=== PATIENT | female | born 1985 | race Hispanic/Latino ===

== ENCOUNTER 2025-03-07 20:32 | Emergency (ER) | payer BC ==
[~2025-03-07] VITALS: Ht 149.9 cm; Wt 83.9 kg
[~2025-03-07 20:32] MED LIST: SALBUTAMOL IH
--- NOTE | 2025-03-07 20:46 | ERN ---
ED Note History of Present Illness Stated Complaint: C/O HEADACHE,DIZZINESS, WEAKNESS, SYNCOPY X 2 DAYS Chief Complaint: Headache Time Seen by MD: 20:38 Dictation: PATIENT IS A 39-YEAR-OLD FEMALE COMING IN WITH COMPLAINTS OF A GENERALIZED HEADACHE AND WEAKNESS FOR THE LAST TWO DAYS. ALSO TONIGHT SHE WAS GETTING DRESSED AFTER SHE GOT OUT OF THE SHOWER AND HER STATES SHE GOT WEAK AND HE HAD TO CATCH HER BEFORE SHE HIT THE GROUND. NO LOC NO NAUSEA VOMITING NO PERSONALITY CHANGES. NIH IS 0. SHE IS STATUS POST A TUMMY TUCK IN [facility] FIVE DAYS AGO. SHE DENIES FEVER CHILLS. Allergies: Coded Allergies: No Known Drug Allergies (Unverified Allergy, Unknown, 12/16/14) Home Meds Reported Medications [Salbutamol ] No Conflict Check, 2 PUFF IH HSPRN PRN for SHORTNESS OF BREATH/WHEEZING 06/22/16 Past Medical History Past Medical History: No Pertinent History Surgical History: Other Surgical History Other: TUMMY TUCK 5 DAYS AGO LMP: Mar 07, 2025 RN Note Reviewed/Agreed w/PFSH: Yes Review of System Dictation CONSTITUTIONAL: NEGATIVE EXCEPT FOR HPI NEAR-SYNCOPE HEAD/FACE: NEGATIVE EXCEPT FOR HPI EENT: NEGATIVE EXCEPT FOR HPI RESPIRATORY: NEGATIVE EXCEPT FOR HPI GASTROINTESTINAL/ABDOMINAL: NEGATIVE EXCEPT FOR HPI GENITOURINARY: NEGATIVE EXCEPT FOR HPI MUSCULOSKELETAL: NEGATIVE EXCEPT FOR HPI INTEGUMENTARY: NEGATIVE EXCEPT FOR HPI NEUROLOGICAL/PSYCH: NEGATIVE EXCEPT FOR HPI ICE HEADACHE HEMATOLOGIC/LYMPHATIC: NEGATIVE EXCEPT FOR HPI ALL SYSTEMS NEGATIVE, EXCEPT NOTED ABOVE. 13 POINT REVIEW OF SYSTEMS ASSESSED AND ALL NEGATIVE EXCEPT FOR ABOVE. Initial Vital Sign VS Vital Signs Date Time Temp Pulse Resp B/P (MAP) Pulse Ox O2 Delivery O2 Flow Rate FiO2 03/07/25 20:36 98.2 99 20 131/67 100 Room Air 03/08/25 01:57 0 21 Physical Exam Dictation VITAL SIGNS REVIEWED GENERAL APPEARANCE: ALERT, ORIENTED X 3, MILD ACUTE DISTRESS, WELL DEVELOPED, NOURISHED. HEAD AND FACE: NON-TRAUMATIC. EYES: PERRL, PINK CONJUNCTIVAS, EYELID NO TRAUMA, ANTERIOR CHAMBER WITH ARCUS S ENILIS. EARS: PINNAS INTACT AND NO SIGNS OF TRAUMA OR ERYTHEMA EAR CANALS CLEAR AND NO DISCHARGE TM NO ERYTHEMA NOSE: NO DISCHARGE, NO BLEEDING. OROPHARYNX: MOUTH NORMAL, TONGUE PINK, PHARYNX CLEAR,NO ERYTHEMA, TONSILS NO EXUDATES, NO ABSCESSES NOTED, MUCOUS MEMBRANE MOIST NECK: SUPPLE, NON-TENDER, NO THYROMEGALY, NO MASSES, NO JVD, NO BRUITS BREAST:DEFERRED CHEST:NO TENDERNESS, NO CREPITUS, NO PARADOXICAL MOVEMENT, NO RETRACTIONS LUNGS:CLEAR, WELL-VENTILATED, SYMMETRIC, NO RALES, NO WHEEZING, NO RHONCHI, NO STRIDOR, GOOD BREATH SOUNDS BILATERALLY HEART: REGULAR RATE, REGULAR RHYTHM, NO MURMUR, NO GALLOPS VASCULAR: NO PERIPHERAL EDEMA, ABDOMEN: SOFT, POSITIVE BOWEL SOUNDS, NONDISTENDED, NO GUARDING, NONTENDER, NO REBOUND, NO MASSES NO HEPATOMEGALY, NO SPLENOMEGALY, NO PISANO'S SIGN, NO HERNIAS. RECTAL: DEFERRED GENITAL: DEFERRED NEUROLOGICAL: NORMAL SPEECH, MOTOR FUNCTION INTACT, SENSORY FUNCTION INTACT MUSCULOSKELETAL: NECK NONTENDER, FULL RANGE OF MOTION, BACK NONTENDER, FULL RANGE OF MOTION, EXTREMITIES: NONTENDER, FULL RANGE OF MOTION SKIN: COLOR PINK, DRY, NO TURGOR, NO RASH, NO LACERATIONS, NO ABRASIONS, NO CONTUSIONS. LYMPHATIC: DEFERRED Results (Laboratory/Radiology) Laboratory/Radiology Laboratory Tests Test 03/07/25 21:52 03/08/25 05:41 White Blood Count 7.2 K/uL (4.8-10.8) Red Blood Count 2.50 MIL/uL (4.00-5.50) L Hemoglobin 7.0 g/dL (12.0-16.0) *L 8.5 g/dL (12.0-16.0) #L Hematocrit 22.5 % (36-48) L 26.3 % (36-48) L Mean Corpuscular Volume 90.0 fL (79-99) Mean Corpuscular Hemoglobin 28.0 pg (27.0-33.0) Mean Corpuscular Hemoglobin Concent 31.1 g/dL (32.0-36.0) L Red Cell Distribution Width 15.9 % (11.0-15.5) H Platelet Count 269 K/uL (130-400) Mean Platelet Volume 10.2 fL (7.5-10.5) Immature Granulocyte % (Auto) 1.7 % (0-1) H Neutrophils (%) (Auto) 77.6 % (40.0-77.0) H Lymphocytes (%) (Auto) 13.1 % (21.0-51.0) L Monocytes (%) (Auto) 5.7 % (3.0-13.0) Eosinophils (%) (Auto) 1.8 % (0.0-8.0) Basophils (%) (Auto) 0.1 % (0.0-5.0) Neutrophils # (Auto) 5.6 K/uL (1.8-7.7) Lymphocytes # (Auto) 0.9 K/uL (1.0-4.8) L Monocytes # (Auto) 0.4 K/uL (0.1-1.0) Eosinophils # (Auto) 0.13 K/uL (0.00-0.70) Basophils # (Auto) 0.01 K/uL (0.00-0.20) Absolute Immature Granulocyte (auto 0.12 K/uL (0-1) Nucleated Red Blood Cells 0.0 % (0.0-0.19) Sodium Level 138 mmol/L (136-145) Potassium Level 3.6 mmol/L (3.5-5.1) Chloride Level 102 mmol/L (101-111) Carbon Dioxide Level 28 mmol/L (21-32) Blood Urea Nitrogen 7 mg/dL (7-18) Creatinine 0.5 mg/dL (0.5-1.0) Glomerular Filtration Rate Calc 121 mL/min (>90) Random Glucose 122 mg/dL (70-105) H Total Calcium 8.0 mg/dL (8.5-10.1) L Troponin I High Sensitivity < 4 ng/L (4-50) L Serum Test, Qualitative NEGATIVE (NEGATIVE) Labs Reviewed?: Yes EKG: (+) NSR EKG Comment: NORMAL SINUS RHYTHM/HEART RATE 86/AXIS NORMAL/NO ECTOPY ED Course ED Course Orders Procedure Category Date Status Time Cbc With Differential LAB 03/07/25 Complete 20:43 Troponin I High LAB 03/07/25 Complete Sensitivity 20:43 12 Lead Ekg Tracing- EKG 03/07/25 Complete Technical 20:43 Basic Metabolic Panel LAB 03/07/25 Complete 20:43 Acetaminophen 500mg PHA 03/07/25 Complete Tab (Tylenol 500mg T 21:00 Chest 1vw RAD 03/07/25 Resulted 22:01 Testing, LAB 03/07/25 Complete Serum Hcg 22:01 0.9%Nacl 1000ml (Ns PHA 03/07/25 Complete 1000ml) 23:30 Rbc - Preoperative BBK 03/07/25 Complete Order 23:53 Type And Screen BBK 03/07/25 Complete 23:53 Hemoglobin And LAB 03/08/25 Complete Hematocrit 04:56 Current Medications Medications (Trade) Dose Ordered Sig/Donovan Route PRN Reason Start Time Stop Time Status Last Admin Dose Admin Acetaminophen (TYLenol 500MG TAB) 1,000 mg ONCE ONCE PO 03/07/25 21:00 03/07/25 21:01 DC 03/07/25 22:31 Sodium Chloride 1,000 ml @ 0 mls/hr ONCE ONCE IV 03/07/25 23:30 03/07/25 23:31 DC 03/07/25 23:28 Vital Signs Date Time Temp Pulse Resp B/P (MAP) Pulse Ox O2 Delivery O2 Flow Rate FiO2 03/08/25 01:57 98.8 83 17 116/56 99 Room Air* 0 21 03/07/25 20:36 98.2 99 20 131/67 100 Room Air Medical Decision Making MDM The patient is a 39-year-old female with a recent history of tummy tuck done in [place] about a week ago who presents to the emergency department with complaints of near-syncope, weakness and headache. Patient otherwise denies any fevers denies nausea or vomiting, denies bloody stools, denies any abdominal pain. CBC showed no leukocytosis, normocytic anemia, chemistry showed no electrolyte imbalance, negative troponin, negative . Chest x-ray was unremarkable. Given patient symptomatically we will transfused a unit of blood. Patient where she is on her menstrual cycle but denies any abnormal bleeding or heavy bleeding. Patient denies any bloody stools. Patient has and abdominal drained but serosanguineous with no severe bleeding. On physical exam patient is neurologically intact, ambulatory, abdomen is soft and nontender., stable vital signs Differential diagnosis: Dehydration, electrolyte imbalance, tachyarrhythmia Need for hospitalization: Patient does not meet criteria for hospitalization. There are no social concerns with this patient. Patient's laboratory analysis showed a hemoglobin of 7. We transfused her a uni t of blood and her hemoglobin shaylee to 8.5. She does feel better her headache is 90% gone. DX & DISP Disposition: Discharge Departure Impression: Primary Impression: Postoperative anemia due to acute blood loss Condition: Stable Additional Instructions: I think your symptoms were due to a combination of dehydration but also a low hemoglobin. We have transfused you a single unit of packed red blood cells and your hemoglobin shaylee from 7-8.5. Please stay well hydrated in his weather. It is okay for you to drink coffee and return to all your normal activities and diet. Please follow-up with your primary care physician in a couple of weeks for a repeat blood draw to be sure that your maintaining your red blood cell count. Your headache can be treated with Tylenol and ibuprofen. Referrals: SELF,REFERRAL (PCP) PEDRO COKER NP Mar 07, 2025 20:45 LAURIE PORTER Mar 08, 2025 00:45 IRMA LANG MD Mar 08, 2025 06:13
--- NOTE | 2025-03-07 21:40 | EKG ---
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
[2025-03-07 22:26] LABS: IMMATURE GRANULOCYTE ABSOLUTE 0.12 K/uL (0-1); NUCLEATED RED BLOOD CELLS 0.0 % (0.0-0.19); PLATELET COUNT (AUTO) 269 K/uL (130-400); RED BLOOD CELL COUNT(AUTO) 2.50 MIL/uL (4.00-5.50); RED CELL DISTRIBUTION WIDTH 15.9 % (11.0-15.5); WHITE BLOOD COUNT (AUTO) 7.2 K/uL (4.8-10.8)
[2025-03-07 22:36] LABS: CREATININE 0.5 mg/dL (0.5-1.0); GLOMERULAR FILTR. RATE CALC 121.0 mL/min (>90); GLUCOSE,RANDOM 122.0 mg/dL (70-105); SODIUM SERUM 138.0 mmol/L (136-145); UREA NITROGEN, BLOOD 7.0 mg/dL (7-18)
--- NOTE | 2025-03-07 22:51 | HMCIMG ---
EXAM: CR Chest, 1 View. CLINICAL HISTORY: syncope COMPARISON: None provided. FINDINGS: LUNGS: The lungs show no infiltrate or other acute finding. PLEURAL SPACES: No evidence of pleural effusion or pneumothorax. MEDIASTINUM: The cardiomediastinal silhouette is within normal limits. BONES: No aggressive appearing osseous lesion seen. IMPRESSION: No acute cardiopulmonary pathology is evident. /[place]
[2025-03-07] MEDS: 0.9%NACL 1000ML 1,000 ML IV ONE (23:28)
[2025-03-08 06:15] VITALS: BP 117/61; PULSE 90; RESP 18; TEMP 98.5; O2SAT 99
== END 2025-03-08 06:19 | disposition home or self-care (01) ==
LOC: EDH 20:32
DX: D62 Acute posthemorrhagic anemia (principal)
CPT/HCPCS: 99285; 36430; 71045; 84484; 80048; 84703; 85025; 86850; 86900; 86901; 86923; 36415 ×2; 93005; 85014; 85018; P9016; J7030